=== PATIENT | female | born 1995 | race African-American/Black ===

== ENCOUNTER 2019-11-17 12:25 | Emergency (ER) | payer MEDICAID, OTHER ==
[~2019-11-17] VITALS: Ht 175.3 cm; Wt 77.0 kg
[2019-11-17] MEDS ORDERED: ACETAMINOPHEN WITH CODEINE 300/30MG TABLET PO ONE (13:00)
[2019-11-17 13:51] VITALS: BP 112/61
== END 2019-11-17 13:52 | disposition home or self-care (01) ==
LOC: ER 12:34
DX: R07.89 Other chest pain (principal)
CPT/HCPCS: 71045; 93005; 99283